=== PATIENT | male | born 1980 | race Caucasian/White ===

== ENCOUNTER 2016-07-28 13:36 | Outpatient (CLI) | payer OTHER ==
[~2016-07-28] VITALS: Ht 182.9 cm; Wt 85.9 kg
[~2016-07-28 13:36] MED LIST: CEFD300C3 PO; DOCU-143 PO; DOCU100T2 PO; ESOM20CA PO; HYDR-3812 PO; METR500T PO; OMEG500C3 PO; SULF1TAB35 PO
[2016-07-28 13:53] VITALS: BP 137/89
[2016-07-28 14:37] LABS: BASOPHILS # (AUTO) 0.1 10^3/uL (0.0-0.1); BASOPHILS % (AUTO) 1 % (0-10); EOSINOPHILS # (AUTO) 0.3 10^3/uL (0.0-0.3); EOSINOPHILS % (AUTO) 4 % (0-10); LYMPHOCYTES # (AUTO) 2.6 X 10^3 (1.0-4.0); LYMPHOCYTES % (AUTO) 30 % (12-44); MEAN CORPUSCULAR HEMOGLOBIN 30 PG (25-34); MEAN CORPUSCULAR HGB CONC 35 G/DL (32-36); MEAN CORPUSCULAR VOLUME 85 FL (80-99); MEAN PLATELET VOLUME 11.5 FL (7.4-10.4); MONOCYTES # (AUTO) 0.5 X 10^3 (0.0-1.0); MONOCYTES % (AUTO) 6 % (0-12); NEUTROPHILS % (AUTO) 59 % (42-75); PLATELET COUNT 193 10^3/uL (130-400); RED BLOOD COUNT 6.04 10^6/uL (4.35-5.85); RED CELL DISTRIBUTION WIDTH 13.9 % (10.0-14.5); WHITE BLOOD COUNT 8.5 10^3/uL (4.3-11.0)
[2016-07-28 14:58] LABS: ANION GAP 10 MMOL/L (5-14); BLOOD UREA NITROGEN 11 MG/DL (7-18); BUN/CREATININE RATIO 11; CALCIUM 9.6 MG/DL (8.5-10.1); CARBON DIOXIDE 25 MMOL/L (21-32); CHLORIDE 104 MMOL/L (98-107); CREATININE SERUM 1.01 MG/DL (0.60-1.30); GFR ESTIMATED > 60; GLUCOSE 102 MG/DL (70-105); POTASSIUM 3.9 MMOL/L (3.6-5.0); SODIUM 139 MMOL/L (135-145)
== END 2016-07-28 15:11 ==
LOC: PREOP 13:36
PROVIDERS: ATTEND Surgery
DX: Z01.812 Encounter for preprocedural laboratory examination (principal); Z11.2 Encounter for screening for other bacterial diseases; Z43.3 Encounter for attention to colostomy
CPT/HCPCS: 36415; 80048; 85025; 87081

== ENCOUNTER 2016-08-01 06:04 | Inpatient (IN) | payer OTHER ==
[~2016-08-01] VITALS: Ht 182.9 cm; Wt 84.0 kg
[2016-08-01] VITALS (13 sets, daily range): BP systolic 111–136; BP diastolic 62–85
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
[2016-08-01] MEDS ORDERED: metroNIDAZOLE 500MG/100ML IVPB 100 ML ONE (06:24)
[2016-08-01] MEDS ORDERED: ceFAZolin 2 GM/50 ML NS 50 ML IV ONE ×2 (06:24→23:49)
[2016-08-01] MEDS ORDERED: FAMOTIDINE 20MG/2ML IV (PEPCID) ONE (06:46)
[2016-08-01] MEDS ORDERED: NS IV 500 ML 500 ML IV PRN (06:48)
[2016-08-01] MEDS: LACTATED RINGERS 1,000 ML IV SCH ×3 (06:51→12:56)
[2016-08-01] MEDS ORDERED: proPOfol 200 MG/20 ML (DIPRIVAN) VIAL IV ONE (06:55)
[2016-08-01] MEDS ORDERED: ROCURONIUM 50 MG/5 ML (ZEMURON) VIAL IV ONE ×2 (06:55→10:07)
[2016-08-01] MEDS ORDERED: MIDAZOLAM 2 MG/2 ML (VERSED) VIAL ONE (06:55)
[2016-08-01] MEDS ORDERED: fentaNYL INJECTION 250 MCG/5 ML AMP ONE (06:55)
[2016-08-01] MEDS ORDERED: FAMOTIDINE 20MG/2ML IV (PEPCID) IV ONE (07:00)
[2016-08-01] MEDS ORDERED: BUPIVACAINE 0.5% 30 ML (SENSORCAINE) VIAL ONE (07:27)
[2016-08-01] MEDS ORDERED: LIDOCAINE 1% INJ 20 ML (XYLOCAINE) VIAL ONE (07:27)
[2016-08-01] MEDS ORDERED: metroNIDAZOLE 500 MG/100 ML IVPB (PRE-MIX) IV ONE (07:30)
[2016-08-01] MEDS ORDERED: ceFAZolin 2 GM/NS 50 ML IV ONE (07:30)
[2016-08-01] MEDS ORDERED: fentaNYL INJECTION 100 MCG/2 ML AMP ONE (08:14)
[2016-08-01] MEDS ORDERED: BUPIVACAINE 0.25% 30 ML (SENSORCAINE) VIAL ONE (08:51)
[2016-08-01] MEDS ORDERED: GLYCOPYRROLATE 0.2 MG/ML (ROBINUL) 2 ML VIAL ONE ×2 (08:51→10:48)
[2016-08-01] MEDS ORDERED: PHENYLEPHRINE 100 MCG/ML 10 ML (ANESTHESIA) SYR ONE (08:51)
[2016-08-01] MEDS ORDERED: ONDANSETRON 4 MG/2 ML (SDV) Z0FRAN ONE (10:08)
[2016-08-01] MEDS ORDERED: DEXAMETHASONE PF 10 MG/ML (DECADRON) VIAL ONE (10:08)
[2016-08-01] MEDS ORDERED: LACTATED RINGERS 2,000 ML IV ONE (10:08)
[2016-08-01] MEDS ORDERED: NEOSTIGMINE (BLOXIVERZ ) 1 MG/1ML 10 ML VIAL ONE (10:48)
[2016-08-01] MEDS ORDERED: SEVOFLURANE (ULTANE) 15 ML INHAL SOLN ONE (10:48)
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
[2016-08-01] MEDS ORDERED: MEPERIDINE (DEMEROL) INJ 50 MG/ML ONE (11:01)
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
[2016-08-01] MEDS ORDERED: morphine INJ 10 MG/ML 1ML (SYR OR VIAL) IV PRN (11:15)
[2016-08-01] MEDS ORDERED: ONDANSETRON 4 MG/2 ML (SDV) Z0FRAN IVP PRN (11:15)
[2016-08-01] MEDS ORDERED: NALOXONE 0.4 MG/ML 1 ML (NARCAN) VIAL IV PRN (11:15)
[2016-08-01] MEDS ORDERED: ONDANSETRON 4 MG/2 ML (SDV) Z0FRAN IV PRN (11:15)
[2016-08-01] MEDS ORDERED: MEPERIDINE (DEMEROL) INJ 50 MG/ML IVP PRN (11:30)
[2016-08-01] MEDS: EPIDURAL (SUFENTA 0.6MCG/ML BUPIVA 0.125%) 100 ML BAG EPI SCH ×2 (11:35→20:20)
[2016-08-01] MEDS ORDERED: MEPERIDINE (DEMEROL) INJ 50 MG/ML IV PRN (11:45)
[2016-08-01] MEDS: ceFAZolin 2 GM/50 ML NS 50 ML IV SCH ×2 (12:56→23:53)
[2016-08-01] MEDS: metroNIDAZOLE 500MG/100ML IVPB 100 ML IV SCH ×2 (12:56→22:54)
[2016-08-02] VITALS (10 sets, daily range): BP systolic 114–125; BP diastolic 67–80
[2016-08-02] MEDS: LACTATED RINGERS 1,000 ML IV SCH ×5 (01:16→21:59)
[2016-08-02] MEDS: EPIDURAL (SUFENTA 0.6MCG/ML BUPIVA 0.125%) 100 ML BAG EPI SCH ×4 (02:57→23:34)
[2016-08-02 05:18] LABS: BASOPHILS % (AUTO) 0 % (0-10); EOSINOPHILS % (AUTO) 0 % (0-10); LYMPHOCYTES # (AUTO) 1.2 X 10^3 (1.0-4.0); LYMPHOCYTES % (AUTO) 8 % (12-44); MEAN CORPUSCULAR HEMOGLOBIN 30 PG (25-34); MEAN CORPUSCULAR HGB CONC 35 G/DL (32-36); MEAN CORPUSCULAR VOLUME 87 FL (80-99); MEAN PLATELET VOLUME 11.6 FL (7.4-10.4); MONOCYTES # (AUTO) 1.4 X 10^3 (0.0-1.0); MONOCYTES % (AUTO) 9 % (0-12); NEUTROPHILS # (AUTO) 12.7 X 10^3 (1.8-7.8); NEUTROPHILS % (AUTO) 83 % (42-75); PLATELET COUNT 191 10^3/uL (130-400); RED BLOOD COUNT 5.01 10^6/uL (4.35-5.85); RED CELL DISTRIBUTION WIDTH 13.9 % (10.0-14.5); WHITE BLOOD COUNT 15.4 10^3/uL (4.3-11.0)
[2016-08-02 05:38] LABS: ANION GAP 10 MMOL/L (5-14); BLOOD UREA NITROGEN 13 MG/DL (7-18); BUN/CREATININE RATIO 12; CALCIUM 8.8 MG/DL (8.5-10.1); CARBON DIOXIDE 21 MMOL/L (21-32); CHLORIDE 105 MMOL/L (98-107); CREATININE SERUM 1.08 MG/DL (0.60-1.30); GFR ESTIMATED > 60; GLUCOSE 124 MG/DL (70-105); MAGNESIUM 1.7 MG/DL (1.8-2.4); PHOSPHORUS 2.9 MG/DL (2.3-4.7); POTASSIUM 4.1 MMOL/L (3.6-5.0); SODIUM 136 MMOL/L (135-145)
[2016-08-02] MEDS ORDERED: KCL 20 MEQ TAB (K-DUR) PO SCH (06:00)
[2016-08-02] MEDS ORDERED: POTASSIUM CL 10MEQ/50ML IVPB 50 ML IV SCH (06:00)
[2016-08-02] MEDS ORDERED: MAGNESIUM 1 GM/100 ML IVPB 100 ML IV SCH (06:00)
[2016-08-02] MEDS: MAGNESIUM 1 GM/100 ML IVPB 100 ML IV SCH ×2 (06:28→09:25)
--- NOTE | 2016-08-02 06:44 | Diagnostic Imaging Report ---
0508 hrs. Comparison is made to study of 10/29/2015. Heart size and pulmonary vascularity remain within normal limits There is no pneumothorax or consolidation. Calcified granulomatous residua in left lung is stable. There is no evidence of pneumothorax, infiltrate or pleural fluid. IMPRESSION: No acute abnormality or adverse change is seen. Dictated by: Dictated on workstation # [id number]
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
[2016-08-02] MEDS: FAMOTIDINE 20MG/2ML IV (PEPCID) IVP SCH (09:33)
[2016-08-02] MEDS: ENOXAPARIN 40 MG/0.4 ML (LOVENOX) SYR SC SCH (09:45)
--- NOTE | 2016-08-02 11:11 | Anesthesia-General Post-Op ---
General Patient Condition Mental Status/LOC: Same as Preop Cardiovascular: Satisfactory Nausea/Vomiting: Absent Respiratory: Satisfactory Pain: Controlled Complications: Absent Post Op Complications Complications None Follow Up Care/Instructions Patient Instructions None needed. Anesthesia/Patient Condition Patient Condition Patient is doing well, no complaints, stable vital signs, no apparent adverse anesthesia problems. No complications reported per nursing. JOSEFINA LYLES CRNA Aug 02, 2016 11:11
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
--- NOTE | 2016-08-02 13:44 | Progress Note ---
Subjective Subjective/Events-last exam Coughed up a large bit of phlegm today. Now breathing better. Using incentive spirometer. Pain controlled. Denies any n/v fever sweats chills shortness of breath or chest pain. Wanting to eat. Objective Exam Vital Signs Date Time Temp Pulse Resp B/P Pulse Ox O2 Delivery O2 Flow Rate FiO2 08/02/16 12:00 97.5 61 18 125/78 95 Room Air 08/02/16 07:00 72 08/02/16 06:00 84 18 114/73 93 Room Air 08/02/16 05:00 96 14 125/80 95 Room Air 08/02/16 04:00 100.6 84 16 121/76 92 Room Air 08/02/16 04:00 93 Room Air 08/02/16 03:00 81 18 119/75 94 Room Air 08/02/16 02:00 89 24 119/77 94 Room Air 08/02/16 01:00 87 21 118/73 93 Room Air 08/02/16 01:00 87 08/02/16 00:00 100.3 81 16 123/74 93 Room Air 08/02/16 00:00 93 Room Air 08/01/16 23:00 89 19 117/75 94 Room Air 08/01/16 22:00 82 16 136/78 93 Room Air 08/01/16 21:00 87 16 123/79 92 Room Air 08/01/16 21:00 93 Room Air 08/01/16 20:00 100.0 85 18 132/76 93 Room Air 08/01/16 19:00 106 19 116/85 95 Room Air 08/01/16 19:00 106 08/01/16 18:00 86 23 120/74 94 Room Air 08/01/16 17:00 75 121/75 95 Room Air 08/01/16 16:00 77 118/76 95 Room Air 08/01/16 15:00 69 122/74 96 Room Air 08/01/16 14:00 73 14 119/75 96 Room Air I & O 08/02/16 07:00 Intake Total 2145 ml Output Total 715 ml Balance 1430 ml Capillary Refill : General Appearance: No Apparent Distress HEENT: PERRL/EOMI Respiratory: No Accessory Muscle Use No Respiratory Distress Cardiovascular: Regular Rate, Rhythm Gastrointestinal: soft (incisional tenderness) Extremity: Non Tender Neurologic/Psychiatric: Alert Oriented x3 Skin: Warm/Dry Results Lab Laboratory Tests 08/02/16 05:00: Anion Gap 10, BUN/Creatinine Ratio 12, Basophils # (Auto) 0.0, Basophils (%) ( Auto) 0, Blood Urea Nitrogen 13, Calcium Level 8.8, Carbon Dioxide Level 21, Chloride Level 105, Creatinine 1.08, Eosinophils # (Auto) 0.0, Eosinophils (%) ( Auto) 0, Estimat Glomerular Filtration Rate > 60, Glucose Level 124H, Hematocrit 43, Hemoglobin 15.0, Lymphocytes # (Auto) 1.2, Lymphocytes (%) (Auto ) 8L, Magnesium Level 1.7L, Mean Corpuscular Hemoglobin 30, Mean Corpuscular Hemoglobin Concent 35, Mean Corpuscular Volume 87, Mean Platelet Volume 11.6H, Monocytes # (Auto) 1.4H, Monocytes (%) (Auto) 9, Neutrophils # (Auto) 12.7H, Neutrophils (%) (Auto) 83H, Phosphorus Level 2.9, Platelet Count 191, Potassium Level 4.1, Red Blood Count 5.01, Red Cell Distribution Width 13.9, Sodium Level 136, White Blood Count 15.4H Assessment/Plan Assessment/Plan Assessment/Plan s/p colostomy takedown, lysis of adhesions appendectomy, sigmoid resection doing well pain control use IS PT start sips of clears transfer to floor Clinical Quality Measures DVT/VTE Risk/Contraindication: Risk Factor Score Per Nursin RFS Level Per Nursing on Admit: 3=High ANDREW CLINE DO Aug 02, 2016 13:44
[2016-08-03] VITALS: BP 126/70
[2016-08-03 04:00] VITALS: BP 134/81
[2016-08-03 04:29] LABS: BASOPHILS % (AUTO) 0 % (0-10); EOSINOPHILS % (AUTO) 0 % (0-10); LYMPHOCYTES % (AUTO) 18 % (12-44); MEAN CORPUSCULAR HEMOGLOBIN 30 PG (25-34); MEAN CORPUSCULAR HGB CONC 34 G/DL (32-36); MEAN CORPUSCULAR VOLUME 88 FL (80-99); MONOCYTES # (AUTO) 1.1 X 10^3 (0.0-1.0); MONOCYTES % (AUTO) 10 % (0-12); NEUTROPHILS # (AUTO) 7.8 X 10^3 (1.8-7.8); NEUTROPHILS % (AUTO) 71 % (42-75); PLATELET COUNT 152 10^3/uL (130-400); RED CELL DISTRIBUTION WIDTH 13.6 % (10.0-14.5); WHITE BLOOD COUNT 10.9 10^3/uL (4.3-11.0)
[2016-08-03 04:51] LABS: ALBUMIN 3.9 G/DL (3.2-4.5); ANION GAP 12 MMOL/L (5-14); ASPARTATE AMINO TRANSFERASE 16 U/L (5-34); BILIRUBIN,TOTAL 0.6 MG/DL (0.1-1.0); BLOOD UREA NITROGEN 11 MG/DL (7-18); BUN/CREATININE RATIO 12; CALCIUM 8.8 MG/DL (8.5-10.1); CARBON DIOXIDE 23 MMOL/L (21-32); CHLORIDE 104 MMOL/L (98-107); CREATININE SERUM 0.93 MG/DL (0.60-1.30); GFR ESTIMATED > 60; GLUCOSE 97 MG/DL (70-105); POTASSIUM 3.7 MMOL/L (3.6-5.0); SODIUM 139 MMOL/L (135-145); TOTAL PROTEIN 6.6 G/DL (6.4-8.2)
[2016-08-03] MEDS: LACTATED RINGERS 1,000 ML IV SCH ×2 (04:53→11:00)
[2016-08-03 05:04] LABS: ALANINE AMINOTRANSFERASE 11 U/L (0-55)
[2016-08-03] MEDS: EPIDURAL (SUFENTA 0.6MCG/ML BUPIVA 0.125%) 100 ML BAG EPI SCH (05:29)
[2016-08-03 08:00] VITALS: BP 129/82
--- NOTE | 2016-08-03 08:18 | Progress Note ---
Subjective Subjective/Events-last exam Patient resting. Even respirations. No distress or discomfort. Alert and oriented x 3. patient reports that he had bowel movement, states it was black and watery. Arthur are intact. Minimal drainage noted. Dressing to be change. No sign of redness noted. Objective Exam Vital Signs Date Time Temp Pulse Resp B/P Pulse Ox O2 Delivery O2 Flow Rate FiO2 08/03/16 04:00 97.0 08/03/16 04:00 134/81 Room Air 08/03/16 00:00 126/70 Room Air 08/03/16 00:00 97.9 08/02/16 21:00 93 Room Air 08/02/16 20:00 98.2 08/02/16 20:00 118/67 Room Air 08/02/16 16:00 97.5 72 18 118/76 95 Room Air 08/02/16 12:00 97.5 61 18 125/78 95 Room Air I & O 08/03/16 07:00 Intake Total 5500 ml Output Total 1600 ml Balance 3900 ml Capillary Refill : General Appearance: No Apparent Distress HEENT: PERRL/EOMI Neck: Normal Inspection Respiratory: Lungs Clear No Accessory Muscle Use No Respiratory Distress Cardiovascular: Regular Rate, Rhythm Gastrointestinal: normal bowel sounds soft (incisional tenderness) Extremity: Non Tender No Calf Tenderness No Pedal Edema Neurologic/Psychiatric: Alert Oriented x3 Skin: Normal Color Warm/Dry Results Lab Laboratory Tests Test 08/02/16 05:00 08/03/16 03:48 Range/Units Anion Gap 10 12 5-14 MMOL/L BUN/Creatinine Ratio 12 12 Basophils # (Auto) 0.0 0.0 0.0-0.1 10^3/uL Basophils (%) (Auto) 0 0 0-10 % Blood Urea Nitrogen 13 11 7-18 MG/DL Calcium Level 8.8 8.8 8.5-10.1 MG/DL Carbon Dioxide Level 21 23 21-32 MMOL/L Chloride Level 105 104 98-107 MMOL/L Creatinine 1.08 0.93 0.60-1.30 MG/DL Eosinophils # (Auto) 0.0 0.0 0.0-0.3 10^3/uL Eosinophils (%) (Auto) 0 0 0-10 % Estimat Glomerular Filtration Rate > 60 > 60 Glucose Level 124 H 97 70-105 MG/DL Hematocrit 43 40 40-54 % Hemoglobin 15.0 13.9 13.3-17.7 G/DL Lymphocytes # (Auto) 1.2 2.0 1.0-4.0 X 10^3 Lymphocytes (%) (Auto) 8 L 18 12-44 % Magnesium Level 1.7 L 1.8-2.4 MG/DL Mean Corpuscular Hemoglobin 30 30 25-34 PG Mean Corpuscular Hemoglobin Concent 35 34 32-36 G/DL Mean Corpuscular Volume 87 88 80-99 FL Mean Platelet Volume 11.6 H 12.0 H 7.4-10.4 FL Monocytes # (Auto) 1.4 H 1.1 H 0.0-1.0 X 10^3 Monocytes (%) (Auto) 9 10 0-12 % Neutrophils # (Auto) 12.7 H 7.8 1.8-7.8 X 10^3 Neutrophils (%) (Auto) 83 H 71 42-75 % Phosphorus Level 2.9 2.3-4.7 MG/DL Platelet Count 191 152 130-400 10^3/uL Potassium Level 4.1 3.7 3.6-5.0 MMOL/L Red Blood Count 5.01 4.60 4.35-5.85 10^6/uL Red Cell Distribution Width 13.9 13.6 10.0-14.5 % Sodium Level 136 139 135-145 MMOL/L White Blood Count 15.4 H 10.9 4.3-11.0 10^3/uL Alanine Aminotransferase (ALT/SGPT) 11 0-55 U/L Albumin 3.9 3.2-4.5 G/DL Alkaline Phosphatase 61 40-136 U/L Aspartate Amino Transf (AST/SGOT) 16 5-34 U/L Total Bilirubin 0.6 0.1-1.0 MG/DL Total Protein 6.6 6.4-8.2 G/DL Laboratory Tests 08/03/16 03:48: Alanine Aminotransferase (ALT/SGPT) 11, Albumin 3.9, Alkaline Phosphatase 61, Anion Gap 12, Aspartate Amino Transf (AST/SGOT) 16, BUN/Creatinine Ratio 12, Basophils # (Auto) 0.0, Basophils (%) (Auto) 0, Blood Urea Nitrogen 11, Calcium Level 8.8, Carbon Dioxide Level 23, Chloride Level 104, Creatinine 0.93, Eosinophils # (Auto) 0.0, Eosinophils (%) (Auto) 0, Estimat Glomerular Filtration Rate > 60, Glucose Level 97, Hematocrit 40, Hemoglobin 13.9, Lymphocytes # (Auto) 2.0, Lymphocytes (%) (Auto) 18, Mean Corpuscular Hemoglobin 30, Mean Corpuscular Hemoglobin Concent 34, Mean Corpuscular Volume 88, Mean Platelet Volume 12.0H, Monocytes # (Auto) 1.1H, Monocytes (%) (Auto) 10 , Neutrophils # (Auto) 7.8, Neutrophils (%) (Auto) 71, Platelet Count 152, Potassium Level 3.7, Red Blood Count 4.60, Red Cell Distribution Width 13.6, Sodium Level 139, Total Bilirubin 0.6, Total Protein 6.6, White Blood Count 10.9 Assessment/Plan Assessment/Plan Assessment/Plan s/p colostomy takedown, lysis of adhesions appendectomy, sigmoid resection The patient is doing well. Pain is under control. encouraged to use of IS. PT. Patient is on clear diet. We will continue to monitor patient. Jorge- Bowel movement this am black and watery. Pain controlled. No nausea or vomiting. Tolerating liquids. Using IS and ambulating. general no acute distress heart reg lungs nonlabored abdomen slight drainage from pen connor drain other stone no erythema, incisional tenderness ext nontender assessment as above Epidural to remove today. Clear liquid diet Possibly home tomorrow. Clinical Quality Measures DVT/VTE Risk/Contraindication: Risk Factor Score Per Nursin RFS Level Per Nursing on Admit: 3=High CIERA ENRIQUEZ APRN Aug 03, 2016 08:18 ANDREW CLINE DO Aug 03, 2016 13:51
[2016-08-03] MEDS: FAMOTIDINE 20MG/2ML IV (PEPCID) IVP SCH (09:00)
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
[2016-08-03] MEDS ORDERED: CATHETER FLUSH 10 ML SYR IV PRN (10:15)
[2016-08-03 12:00] VITALS: BP 130/94
--- NOTE | 2016-08-03 13:10 | Anesthesia-Regional Post-Op ---
Regional Patient Condition Mental Status: Alert, Oriented x3 Circulation: Same as Pre-Op Headache: Absent Sensation: Decreased (Epidural providing good pain control) Motor Block: Absent Post Op Complications Complications None Follow Up Care/Instructions Patient Instructions None needed. Anesthesia/Patient Condition 1100- Patient is doing well, no complaints, stable vital signs. Patient has reported good pain control with epidural. Surgery planning to discharge tomorrow. Last dose of lovenox was given >24hrs. Epidural pulled with tip intact. Will restart lovenox in 4 hours HANS,JOSI Pan CRNA Aug 03, 2016 13:10
[2016-08-03] MEDS: ENOXAPARIN 40 MG/0.4 ML (LOVENOX) SYR SC SCH (15:02)
[2016-08-03 16:00] VITALS: BP 125/81
[2016-08-03] MEDS: morphine INJ 4 MG/ML 1 ML (VIAL/SYRINGE) IV PRN ×2 (19:49→22:58)
[2016-08-03 19:50] VITALS: BP 108/72
[2016-08-04] VITALS: BP 127/77
[2016-08-04 03:40] VITALS: BP 144/84
[2016-08-04] MEDS: morphine INJ 4 MG/ML 1 ML (VIAL/SYRINGE) IV PRN ×2 (03:43→09:28)
[2016-08-04 04:38] LABS: BASOPHILS % (AUTO) 1 % (0-10); EOSINOPHILS # (AUTO) 0.4 10^3/uL (0.0-0.3); EOSINOPHILS % (AUTO) 5 % (0-10); LYMPHOCYTES % (AUTO) 27 % (12-44); MEAN CORPUSCULAR HEMOGLOBIN 30 PG (25-34); MEAN CORPUSCULAR HGB CONC 34 G/DL (32-36); MEAN CORPUSCULAR VOLUME 88 FL (80-99); MEAN PLATELET VOLUME 11.4 FL (7.4-10.4); MONOCYTES # (AUTO) 0.8 X 10^3 (0.0-1.0); MONOCYTES % (AUTO) 10 % (0-12); NEUTROPHILS # (AUTO) 4.4 X 10^3 (1.8-7.8); NEUTROPHILS % (AUTO) 58 % (42-75); PLATELET COUNT 176 10^3/uL (130-400); RED BLOOD COUNT 5.09 10^6/uL (4.35-5.85); RED CELL DISTRIBUTION WIDTH 13.4 % (10.0-14.5); WHITE BLOOD COUNT 7.6 10^3/uL (4.3-11.0)
[2016-08-04 05:07] LABS: ALANINE AMINOTRANSFERASE 13 U/L (0-55); ALBUMIN 4.2 G/DL (3.2-4.5); ANION GAP 11 MMOL/L (5-14); ASPARTATE AMINO TRANSFERASE 26 U/L (5-34); BILIRUBIN,TOTAL 0.8 MG/DL (0.1-1.0); BLOOD UREA NITROGEN 6 MG/DL (7-18); BUN/CREATININE RATIO 6; CALCIUM 9.5 MG/DL (8.5-10.1); CARBON DIOXIDE 26 MMOL/L (21-32); CHLORIDE 102 MMOL/L (98-107); CREATININE SERUM 1.01 MG/DL (0.60-1.30); GFR ESTIMATED > 60; GLUCOSE 99 MG/DL (70-105); POTASSIUM 3.6 MMOL/L (3.6-5.0); SODIUM 139 MMOL/L (135-145); TOTAL PROTEIN 7.5 G/DL (6.4-8.2)
[2016-08-04 08:21] VITALS: BP 127/87
--- NOTE | 2016-08-04 09:16 | Progress Note ---
Subjective Subjective/Events-last exam Patient resting in bed. Awake and alert. Alert and oriented x 3. No signs of distress or discomfort is noted. [place] to incisions are intact. No signs of dehiscence noted. Minimal drainage from drain tube to left upper quadrant. Patient reports having a liquid stool that was green in color. Vital signs stable. No fever, chills or chest pain noted. Objective Exam Vital Signs Date Time Temp Pulse Resp B/P Pulse Ox O2 Delivery O2 Flow Rate FiO2 08/04/16 08:22 95 Room Air 08/04/16 08:21 98.8 66 18 127/87 95 Room Air 08/04/16 03:40 98.8 44 18 144/84 96 Room Air 08/04/16 00:00 97.3 67 16 127/77 96 Room Air 08/03/16 21:00 94 Nasal Cannula 1.00 08/03/16 19:50 99.2 74 18 108/72 90 Nasal Cannula 2.00 08/03/16 16:00 99.7 84 16 125/81 94 Room Air 08/03/16 12:00 100.0 85 22 130/94 95 Room Air I & O 08/04/16 07:00 Intake Total 1850 ml Balance 1850 ml Capillary Refill : General Appearance: No Apparent Distress HEENT: PERRL/EOMI Neck: Normal Inspection Respiratory: Chest Non Tender No Accessory Muscle Use No Respiratory Distress Cardiovascular: Regular Rate, Rhythm Gastrointestinal: soft (incisional tenderness) tenderness (midline incision intact. No redness. ) Extremity: Non Tender No Calf Tenderness No Pedal Edema Neurologic/Psychiatric: Alert Oriented x3 Skin: Normal Color Warm/Dry Results Lab Laboratory Tests Test 08/03/16 03:48 08/04/16 04:06 Range/Units Alanine Aminotransferase (ALT/SGPT) 11 13 0-55 U/L Albumin 3.9 4.2 3.2-4.5 G/DL Alkaline Phosphatase 61 78 40-136 U/L Anion Gap 12 11 5-14 MMOL/L Aspartate Amino Transf (AST/SGOT) 16 26 5-34 U/L BUN/Creatinine Ratio 12 6 Basophils # (Auto) 0.0 0.0 0.0-0.1 10^3/uL Basophils (%) (Auto) 0 1 0-10 % Blood Urea Nitrogen 11 6 L 7-18 MG/DL Calcium Level 8.8 9.5 8.5-10.1 MG/DL Carbon Dioxide Level 23 26 21-32 MMOL/L Chloride Level 104 102 98-107 MMOL/L Creatinine 0.93 1.01 0.60-1.30 MG/DL Eosinophils # (Auto) 0.0 0.4 H 0.0-0.3 10^3/uL Eosinophils (%) (Auto) 0 5 0-10 % Estimat Glomerular Filtration Rate > 60 > 60 Glucose Level 97 99 70-105 MG/DL Hematocrit 40 45 40-54 % Hemoglobin 13.9 15.3 13.3-17.7 G/DL Lymphocytes # (Auto) 2.0 2.0 1.0-4.0 X 10^3 Lymphocytes (%) (Auto) 18 27 12-44 % Mean Corpuscular Hemoglobin 30 30 25-34 PG Mean Corpuscular Hemoglobin Concent 34 34 32-36 G/DL Mean Corpuscular Volume 88 88 80-99 FL Mean Platelet Volume 12.0 H 11.4 H 7.4-10.4 FL Monocytes # (Auto) 1.1 H 0.8 0.0-1.0 X 10^3 Monocytes (%) (Auto) 10 10 0-12 % Neutrophils # (Auto) 7.8 4.4 1.8-7.8 X 10^3 Neutrophils (%) (Auto) 71 58 42-75 % Platelet Count 152 176 130-400 10^3/uL Potassium Level 3.7 3.6 3.6-5.0 MMOL/L Red Blood Count 4.60 5.09 4.35-5.85 10^6/uL Red Cell Distribution Width 13.6 13.4 10.0-14.5 % Sodium Level 139 139 135-145 MMOL/L Total Bilirubin 0.6 0.8 0.1-1.0 MG/DL Total Protein 6.6 7.5 6.4-8.2 G/DL White Blood Count 10.9 7.6 4.3-11.0 10^3/uL Laboratory Tests 08/04/16 04:06: Alanine Aminotransferase (ALT/SGPT) 13, Albumin 4.2, Alkaline Phosphatase 78, Anion Gap 11, Aspartate Amino Transf (AST/SGOT) 26, BUN/Creatinine Ratio 6, Basophils # (Auto) 0.0, Basophils (%) (Auto) 1, Blood Urea Nitrogen 6L, Calcium Level 9.5, Carbon Dioxide Level 26, Chloride Level 102, Creatinine 1.01, Eosinophils # (Auto) 0.4H, Eosinophils (%) (Auto) 5, Estimat Glomerular Filtration Rate > 60, Glucose Level 99, Hematocrit 45, Hemoglobin 15.3, Lymphocytes # (Auto) 2.0, Lymphocytes (%) (Auto) 27, Mean Corpuscular Hemoglobin 30, Mean Corpuscular Hemoglobin Concent 34, Mean Corpuscular Volume 88, Mean Platelet Volume 11.4H, Monocytes # (Auto) 0.8, Monocytes (%) (Auto) 10 , Neutrophils # (Auto) 4.4, Neutrophils (%) (Auto) 58, Platelet Count 176, Potassium Level 3.6, Red Blood Count 5.09, Red Cell Distribution Width 13.4, Sodium Level 139, Total Bilirubin 0.8, Total Protein 7.5, White Blood Count 7.6 Assessment/Plan Assessment/Plan Assessment/Plan s/p colostomy takedown, lysis of adhesions appendectomy, sigmoid resection The patient is doing well. Pain is under control. encouraged to use of IS. PT. Patient is on clear diet. Patient will probably be discharged today. Clinical Quality Measures DVT/VTE Risk/Contraindication: Risk Factor Score Per Nursin RFS Level Per Nursing on Admit: 3=High CIERA ENRIQUEZ APRN Aug 04, 2016 09:16
--- NOTE | 2016-08-04 09:22 | Discharge Inst-Simple/Standard ---
Discharge Inst-Standard Patient Instructions/Follow Up Plan of Care/Instructions/FU: Follow up with Dr. Patel in 2 weeks. Follow up with PCP in 1 weeks. Keep incisions clean and dry Soft diet for the next 3-4 days and then slowly advance to solid food as tolerated. Report to clinic as soon as there is no drainage to the drain tube. Continue with inspiratory Spirometer. Activity as Tolerated: No Discharge Diet: Soft Diet Other Inst to Patient Follow up Appt: Make appointment for 2 week. Instructions: No lifting greater than 10 pounds. No strenuous activity. May shower in 24 hours, no tub bath or soaking. Use incentive spirometer at home as directed. No Smoking Skin/Wound Care: May remove bandages. You need to leave the white strips over incision on they will fall off on their own. Symptoms to Report: Appetite Changes, Extremity Discoloration, Numbness/Tingling, Swelling Increased , Bleeding Excessive, Eyesight Changes, Pain Increased, Urine Color Change, Constipation(Persistent), Fever over 101 degree F, Pain/Pressure in chest, Urinating Difficulty, Cough Up/Vomit Blood, Heart Beat Irreg/Pounding, Pain/ Pressure in jaw, Vaginal Bleeding Increase, Cramps in feet or legs, Lightheadedness, Pain/Pressure in shoulder, Diarrhea(Persistent), Memory Changes Suddenly, Questions/Concerns, Weight gain consecutive days, Dizziness/ Fainting, Nausea/Vomiting, Shortness of Breath, Weight gain over 2 pounds If questions or concerns contact your physician Or seek help at emergency department. CIERA ENRIQUEZ APRN Aug 04, 2016 09:22
[2016-08-04] MEDS: FAMOTIDINE 20MG/2ML IV (PEPCID) IVP SCH (09:28)
[2016-08-04] MEDS: ENOXAPARIN 40 MG/0.4 ML (LOVENOX) SYR SC SCH (09:28)
[2016-08-04] MEDS ORDERED: DOCU-143 PO (09:40)
[2016-08-04] MEDS ORDERED: HYDR-3812 PO (09:40)
[2016-08-04 11:50] VITALS: BP 127/87
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
== END 2016-08-04 12:00 | disposition home or self-care (01) | DRG 331 ==
LOC: SDC 06:04 → 4TH 11:01 → ICU 12:00
PROVIDERS: ADMIT Surgery; ATTEND Surgery
PROC: 0DBN0ZZ Excision of Sigmoid Colon, Open Approach (ICD-10-PCS; 2016-08-01)
PROC: 0DN80ZZ Release Small Intestine, Open Approach (ICD-10-PCS; 2016-08-01)
PROC: 0DNE0ZZ Release Large Intestine, Open Approach (ICD-10-PCS; 2016-08-01)
PROC: 0DSL0ZZ Reposition Transverse Colon, Open Approach (ICD-10-PCS; principal; 2016-08-01 07:43)
DX: Z43.3 Encounter for attention to colostomy (principal); K66.0 Peritoneal adhesions (postprocedural) (postinfection)
CPT/HCPCS: 36415; 71010; 80048; 80053; 80306; 83735; 84100; 85025; 86850; 86900; 86901; 88304; 94664